=== PATIENT | female | born 1995 | race American Indian/Alaskan Native ===

== ENCOUNTER 2020-12-08 00:08 | Emergency (ER) | payer BC ==
[2020-12-08 02:41] LABS: Bilirubin,Urine NEG (Negative); Blood,Urine NEG (Negative); Color,Urine Yellow (Yellow); Mucus,Urine 1+ /HPF; Protein,Urine <15 mg/dL mg/dL (Negative); RBC,Urine < 1.0 /HPF (0.0-6.0); Urobilinogen,Urine < 2.0 mg/dL (<2.0); WBC,Urine < 1.0 /HPF (0.0-6.0)
[2020-12-08 02:44] LABS: HCG Qualitative,Urine Negative (Negative)
--- NOTE | 2020-12-08 03:22 | Emergency Department Report ---
<DUANE ROSADO - Last Filed: 12/08/20 06:52> ED Female HPI - General Chief complaint: Abdominal Pain Stated complaint: ABDOMINAL PAIN/CONSTIPATION PRESSURE ON BACK Source: patient Mode of arrival: Ambulatory Limitations: No Limitations - History of Present Illness Initial comments: Patient is a nulliparous 25-year-old -[place] female with a history of morbid obesity who presents to the ED with complaint of acute onset persistent diffuse low abdominal pain that radiates to the bilateral flanks and lower back with dysuria, urinary frequency and urgency for the last 2 weeks, worse in the last 2 days. Patient also complains of nausea. Patient denies dizziness, fever, chills, diarrhea, constipation, cough, chest pain, shortness of breath, dyspareunia, vaginal bleeding, traumatic injury, headache, change in vision or numbness and tingling or weakness of lower extremities bilaterally. MD Complaint: dysuria, pelvic pain, other (Low back pain) -: Sudden, week(s) (2) Location: perineum, suprapubic, LLQ Radiation: suprapubic, LLQ Severity: severe Severity scale (0 -10): 7 Quality: cramping, sharp, aching Consistency: constant Improves with: none Worsens with: movement Are you Now?: No Associated Symptoms: denies other symptoms, abdominal pain, dysuria. denies: vaginal discharge, vaginal bleeding, nausea/vomiting, fever/chills, headaches, loss of appetite, hematuria, rash, seizure, shortness of breath, syncope, weakness - Related Data Sexually active: Yes : 0 Para: 0 A: 0 Previous Rx's Medication Instructions Recorded Last Taken Type Acetaminophen/Codeine [Tylenol 1 tab PO Q8H PRN #6 tab 12/08/20 Unknown Rx /Codeine # 3 tab] Doxycycline Monohydrate 100 mg PO BID 7 Days #14 capsule 12/08/20 Unknown Rx Ibuprofen [Motrin 800 MG tab] 800 mg PO Q8HR PRN #20 tablet 12/08/20 Unknown Rx metroNIDAZOLE [Flagyl] 500 mg PO Q12HR 7 Days #14 tab 12/08/20 Unknown Rx Allergies Allergy/AdvReac Type Severity Reaction Status Date / Time No Known Allergies Allergy Unverified 12/08/20 02:07 ED Review of Systems Constitutional: denies: chills, fever Eyes: denies: eye pain, eye discharge, vision change ENT: denies: ear pain, throat pain Respiratory: denies: cough, shortness of breath, wheezing Cardiovascular: denies: chest pain, palpitations Endocrine: no symptoms reported Gastrointestinal: abdominal pain (Suprapubic). denies: nausea, vomiting, diarrhea Genitourinary: urgency, dysuria, frequency. denies: discharge, abnormal menses Musculoskeletal: back pain (Low back pain). denies: joint swelling, arthralgia Skin: denies: rash, lesions Neurological: denies: headache, weakness, paresthesias Psychiatric: denies: anxiety, depression Hematological/Lymphatic: denies: easy bleeding, easy bruising ED Past Medical Hx - Medications Home Medications: Home Medications Medication Instructions Recorded Confirmed Last Taken Type Acetaminophen/Codeine [Tylenol 1 tab PO Q8H PRN #6 tab 12/08/20 Unknown Rx /Codeine # 3 tab] Doxycycline Monohydrate 100 mg PO BID 7 Days #14 capsule 12/08/20 Unknown Rx Ibuprofen [Motrin 800 MG tab] 800 mg PO Q8HR PRN #20 tablet 12/08/20 Unknown Rx metroNIDAZOLE [Flagyl] 500 mg PO Q12HR 7 Days #14 tab 12/08/20 Unknown Rx ED Physical Exam - General Limitations: No Limitations General appearance: alert, in no apparent distress - Head Head exam: Present: atraumatic, normocephalic, normal inspection - Eye Eye exam: Present: normal appearance, PERRL, EOMI Pupils: Present: normal accommodation - ENT ENT exam: Present: normal exam, normal orophraynx, mucous membranes moist, TM's normal bilaterally, normal external ear exam - Neck Neck exam: Present: normal inspection, full ROM - Respiratory Respiratory exam: Present: normal lung sounds bilaterally. Absent: respiratory distress, wheezes, rales, rhonchi, chest wall tenderness, accessory muscle use - Cardiovascular Cardiovascular Exam: Present: regular rate, normal rhythm, normal heart sounds. Absent: systolic murmur, diastolic murmur, rubs, gallop - GI/Abdominal GI/Abdominal exam: Present: soft, tenderness (Palpable diffuse lower abdominal tenderness), normal bowel sounds. Absent: guarding, rebound, hyperactive bowel sounds, organomegaly - Bi-manual exam: Present: other (Pelvic exam deferred) - Extremities Exam Extremities exam: Present: normal inspection, full ROM, normal capillary refill - Back Exam Back exam: Present: normal inspection, full ROM. Absent: tenderness, CVA tenderness (R), CVA tenderness (L), muscle spasm, paraspinal tenderness - Neurological Exam Neurological exam: Present: alert, oriented X3, CN II-XII intact, normal gait, reflexes normal - Psychiatric Psychiatric exam: Present: normal affect, normal mood - Skin Skin exam: Present: warm, dry, intact, normal color. Absent: rash ED Medical Decision Making - Lab Data Result diagrams: 12/08/20 04:10 12/08/20 04:10 - Medical Decision Making This is a nulliparous 25-year-old -[place] female with a history of morbid obesity who presents to the ED with complaint of acute onset persistent diffuse low abdominal pain that radiates to the bilateral flanks and lower back with dysuria, urinary frequency and urgency for the last 2 weeks, worse in the last 2 days. Patient also complains of nausea. In the ED, patient is alert and oriented x3 and is not in any distress. Lab test results were reviewed and are all nonactionable. Abdomen pelvis CT scan with contrast was ordered. At the time of shift change at 0700 hrs., the abdomen pelvis CT scan had not been performed and patient care was transferred to Ms. Colton Jorge PA-C at shift change. She shall review all imaging reports and disposition the patient accordingly. - Differential Diagnosis PID; UTI; ovarian cyst; constipation; appendicitis; ED Disposition Clinical Impression: Abdominal pain in female patient, Bacterial vaginosis Disposition: TO HOME OR SELFCARE Is pt being admited?: No Does the pt Need Aspirin: No Condition: Stable Instructions: Bacterial Vaginosis, [id number], Abdominal Pain, Adult, [id number], Bacterial Vaginosis (ED), Abdominal Pain (ED) Prescriptions: Doxycycline Monohydrate 100 mg PO BID 7 Days #14 capsule metroNIDAZOLE [Flagyl] 500 mg PO Q12HR 7 Days #14 tab Ibuprofen [Motrin 800 MG tab] 800 mg PO Q8HR PRN #20 tablet PRN Reason: Pain, Moderate (4-6) Acetaminophen/Codeine [Tylenol /Codeine # 3 tab] 1 tab PO Q8H PRN #6 tab PRN Reason: Pain , Severe (7-10) Referrals: [facility] [Provider Group] - 3-5 Days [facility] [Provider Group] - 3-5 Days Forms: STI Treatment and Prevention, Work/School Release Form(ED) Time of Disposition: 03:22 Print Language: YAKUT <COLTON JORGE - Last Filed: 12/08/20 12:22> ED Medical Decision Making - Lab Data Result diagrams: 12/08/20 04:10 12/08/20 04:10 - Radiology Data Radiology results: report reviewed CT ABDOMEN AND PELVIS WITH CONTRAST INDICATION / CLINICAL INFORMATION: MAIN. TECHNIQUE: Axial CT images were obtained through the abdomen and pelvis after 100 cc Omni [address] scans at this location are performed using CT dose reduction for ALARA by means of automated exposure control. COMPARISON: None available. FINDINGS: LOWER CHEST: No significant abnormality. HEPATOBILIARY: No focal hepatic abnormality. Likely 2.5 cm gallstone with minimal peripheral calcification, predominantly low-density. No significant biliary ductal dilatation. PANCREAS/SPLEEN/ADRENALS: No significant abnormality. GENITOURINARY: No definite striated nephrograms. Symmetric, homogenous enhancement of the kidneys without focal abnormality. No obstructive uropathy. Ureters and bladder demonstrate no significant abnormality. GASTROINTESTINAL/MESENTERY: No significant abnormality. RETROPERITONEUM: No significant adenopathy. REPRODUCTIVE ORGANS: No significant abnormality. VASCULAR: No significant abnormality. BODY WALL: No significant abnormality. SKELETAL SYSTEM: No significant abnormality. IMPRESSION: 1. No acute abdominopelvic abnormality. 2. Cholelithiasis without associated inflammation. - Medical Decision Making CT is negative for any acute abnormalities. No CMT noted on pelvic exam, however there was some white discharge noted. Wet prep is negative for trichomonas and positive for BV. Given patient's symptoms, normal CBC, and UA being negative for UTI, will treat empirically for gonorrhea chlamydia with Rocephin and doxycycline for home. Discussed need for follow-up with GI. Patient is well-appearing, her vitals are within normal limits, she is stable for discharge home. Strict return precautions were discussed in detail with patient who verbalized understanding. <SIOMARA SALAZAR III - Last Filed: 12/14/20 21:57> ED Review of Systems ROS: Stated complaint: ABDOMINAL PAIN/CONSTIPATION PRESSURE ON BACK Other details as noted in HPI ED Course Vital Signs 12/08/20 12/08/20 12/08/20 02:06 08:30 08:46 Temperature 98.6 F Pulse Rate 66 Respiratory 18 Rate Blood Pressure 143/91 130/69 Blood Pressure [Left] O2 Sat by Pulse 99 100 99 Oximetry 12/08/20 12/08/20 12/08/20 09:00 09:16 09:30 Temperature Pulse Rate Respiratory Rate Blood Pressure 129/69 129/69 129/69 Blood Pressure [Left] O2 Sat by Pulse 100 100 100 Oximetry 12/08/20 12/08/20 12/08/20 09:46 09:51 10:00 Temperature Pulse Rate 64 Respiratory 16 Rate Blood Pressure 130/69 127/64 Blood Pressure 130/76 [Left] O2 Sat by Pulse 100 100 100 Oximetry 12/08/20 12/08/20 12/08/20 10:22 10:30 10:46 Temperature Pulse Rate Respiratory Rate Blood Pressure 129/69 129/69 129/69 Blood Pressure [Left] O2 Sat by Pulse 90 99 80 L Oximetry 12/08/20 12/08/20 12/08/20 11:00 11:16 11:30 Temperature Pulse Rate Respiratory Rate Blood Pressure 118/59 118/59 118/59 Blood Pressure [Left] O2 Sat by Pulse 99 100 55 L Oximetry 12/08/20 12/08/20 12/08/20 11:40 11:46 12:00 Temperature Pulse Rate 62 Respiratory 16 Rate Blood Pressure 118/59 127/64 Blood Pressure 118/62 [Left] O2 Sat by Pulse 100 100 100 Oximetry 12/08/20 12/08/20 12:16 12:43 Temperature Pulse Rate Respiratory 18 Rate Blood Pressure 118/59 Blood Pressure [Left] O2 Sat by Pulse 100 100 Oximetry ED Medical Decision Making - Lab Data Result diagrams: 12/08/20 04:10 12/08/20 04:10 Critical care attestation.: If time is entered above; I have spent that time in minutes in the direct care of this critically ill patient, excluding procedure time. ED Disposition Is pt being admited?: No Does the pt Need Aspirin: No
[2020-12-08 04:39] LABS: Basophils % (Auto) 0.4 % (0.0-1.8); Eosinophils # (Auto) 0.1 K/mm3 (0.0-0.4); Eosinophils % (Auto) 1.2 % (0.0-4.3); Hematocrit 40.5 % (30.3-42.9); Hemoglobin 13.7 gm/dl (10.1-14.3); Lymphocytes # (Auto) 2.1 K/mm3 (1.2-5.4); Lymphocytes % (Auto) 42.8 % (13.4-35.0); Mean Corpuscular HGB Conc 34 % (30-34); Mean Corpuscular Volume 85 fl (79-97); Monocytes # (Auto) 0.4 K/mm3 (0.0-0.8); Monocytes % (Auto) 8.3 % (0.0-7.3); Platelet Count 275 K/mm3 (140-440); Red Blood Count 4.78 M/mm3 (3.65-5.03); Red Cell Distribution Width 13.6 % (13.2-15.2)
[2020-12-08 05:03] LABS: Alanine Aminotransferase 29 units/L (7-56); Albumin 4.4 g/dL (3.9-5); BUN/Creatinine Ratio 10; Blood Urea Nitrogen 8 mg/dL (7-17); Calcium 10.5 mg/dL (8.4-10.2); Hemolysis Index 5
--- NOTE | 2020-12-08 10:55 | Cat Scan Report ---
CT ABDOMEN AND PELVIS WITH CONTRAST INDICATION / CLINICAL INFORMATION: MAIN. TECHNIQUE: Axial CT images were obtained through the abdomen and pelvis after 100 cc Omni [address] scans at this location are performed using CT dose reduction for ALARA by means of automated expos ure control. COMPARISON: None available. FINDINGS: LOWER CHEST: No significant abnormality. HEPATOBILIARY: No focal hepatic abnormality. Likely 2.5 cm gallstone with minimal peripheral calcific ation, predominantly low-density. No significant biliary ductal dilatation. PANCREAS/SPLEEN/ADRENALS: No significant abnormality. GENITOURINARY: No definite striated nephrograms. Symmetric, homogenous enhancement of the kidneys wit hout focal abnormality. No obstructive uropathy. Ureters and bladder demonstrate no significant abnor mality. GASTROINTESTINAL/MESENTERY: No significant abnormality. RETROPERITONEUM: No significant adenopathy. REPRODUCTIVE ORGANS: No significant abnormality. VASCULAR: No significant abnormality. BODY WALL: No significant abnormality. SKELETAL SYSTEM: No significant abnormality. IMPRESSION: 1. No acute abdominopelvic abnormality. 2. Cholelithiasis without associated inflammation. Signer Name: Jag Solis MD Signed: 12/08/2020 10:51 AM Workstation Name: [id number]
[2020-12-08] MEDS ORDERED: LIDOCAINE-MPF (1%) 10 MG/1 ML VIAL 5 ML INFILTRATI ONE (12:20)
[2020-12-08 12:26] VITALS: BP 118/59
== END 2020-12-08 12:05 | disposition home or self-care (01) ==
LOC: ED 00:08
DX: N76.0 Acute vaginitis (principal); B96.89 Other specified bacterial agents as the cause of diseases classified elsewhere; R10.30 Lower abdominal pain, unspecified; Z79.899 Other long term (current) drug therapy
CPT/HCPCS: 36415; 74177; 80053; 81001; 81025; 83690; 85025; 87210; 87591; 96372; 99284; J0696; Q9967